=== PATIENT | male | born 1970 | race Caucasian/White ===

== ENCOUNTER 2017-04-19 15:14 | Emergency (ER) | payer MEDICAID ==
[2017-04-19 15:23] VITALS: BP 127/54; PULSE 70; RESP 20; TEMP 98.1; O2SAT 95
--- NOTE | 2017-04-19 15:24 | EDPHY ---
H & P HPI/ROS: CHIEF COMPLAINT: Left lower quadrant soft HISTORY OF PRESENT ILLNESS: Patient is a 47-year-old man with a history of schizophrenia called 911 after he [place] a spicy meal [place] [facility]. He states that it was too spicy and that afterwards he felt like his left lower quadrant was "too soft." He interpreted this as chest pain. He does use cocaine but has not used it for 2 days. He states that when he "gets high it sets off his sexual spirituality". He denies any chest pain today. He denies any shortness of breath. He denies any nausea, vomiting or diaphoresis. He is currently asymptomatic other than being slightly anxious. EMS EKG was normal. REVIEW OF SYSTEMS: Constitutional: denies: chills, fever, recent illness, recent injury EENTM: denies: blurred vision, double vision, nose congestion Respiratory: denies: cough, shortness of breath Cardiac: denies: chest pain, irregular heart rate, lightheadedness, palpitations Gastrointestinal/Abdominal: See HPI denies: abdominal pain, diarrhea, nausea, vomiting, blood streaked stools Genitourinary: denies: dysuria, frequency, hematuria, pain Musculoskeletal: denies: joint pain, muscle pain Skin: denies: lesions, rash, jaundice, bruising Neurological: denies: headache, numbness, paresthesia, tingling, dizziness, weakness Hematologic/Lymphatic: denies: blood clots, easy bleeding, easy bruising Immunologic/allergic: denies: HIV/AIDS, transplant EXAM: GENERAL: Well-appearing, well-nourished and in no acute distress. HEAD: Atraumatic, normocephalic. EYES: Pupils equal round and reactive to light, extraocular movements intact, sclera anicteric, conjunctiva are normal. ENT: TMs normal, nares patent, oropharynx clear without exudates. Moist mucous membranes. NECK: Normal range of motion, supple without lymphadenopathy or JVD. LUNGS: Breath sounds clear to auscultation bilaterally and equal. No wheezes rales or rhonchi. HEART: Regular rate and rhythm without murmurs, rubs or gallops. ABDOMEN: Soft, nontender, normoactive bowel sounds. No guarding, no rebound. No masses appreciated. BACK: No CVA tenderness, no spinal tenderness, step-offs or deformities EXTREMITIES: Normal range of motion, no pitting or edema. No clubbing or cyanosis. NEUROLOGICAL: Cranial nerves II through XII grossly intact. Normal speech, normal gait. 5/5 strength, normal movement in all extremities, normal sensation PSYCH: Normal mood, normal affect. SKIN: Warm, dry, normal turgor, no visible rashes or lesions. Source: Patient, EMS, Old records Exam Limitations: Clinical condition - Medical/Surgical History Hx Asthma: No Hx Chronic Respiratory Disease: No Hx Diabetes: No Hx Cardiac Disease: No Hx Renal Disease: No Hx Cirrhosis: No Hx Alcoholism: No Hx HIV/AIDS: No Hx Splenectomy or Spleen Trauma: No Other PMH: medical- depression, schizophrenia. denies surgical history, "spiritual novacaine growth" - Family History Significant Family History: No pertinent family hx - Social History Smoking Status: Current every day smoker Alcohol Use: Sober Drug Use: None Constitutional: Initial Vital Signs Temperature (C) 36.7 C 04/19/17 15:21 Heart Rate 70 04/19/17 15:21 Respiratory Rate 20 04/19/17 15:21 Blood Pressure 127/54 H 04/19/17 15:21 O2 Sat (%) 95 04/19/17 15:21 O2 Delivery Mode Room Air Allergies/Adverse Reactions: No Known Allergies Allergy (Verified 04/19/17 15:23) Home Medications: Medication Instructions Recorded OLANZAPINE [ZYPREXA 20 mg] 10 mg PO DAILY 02/03/12 Medical Decision Making - Diagnostics EKG Interpretation: An EKG obtained and was read and documented in trace view. Please see trace view for full reading and report. Diffuse minimal ST elevation unchanged from previous four EKGs ED Course/Re-evaluation: The patient is currently asymptomatic. His EKG is unremarkable. His symptoms are not concerning for cardiac disease. He has a benign abdomen. He feels reassured and is eager to go home. He states that he has a bus pass any new to come here rather than a different hospital because he knew he would be discharged immediately. Differential Diagnosis: Partial list of the Differential diagnosis considered include but were not limited to; anxiety, substance abuse, withdrawal and although unlikely based on the history and physical exam, I also considered acute coronary disease, diverticulitis, appendicitis, gastroenteritis. I discussed these differential diagnoses and the plan with the patient as well as the usual and expected course. The patient understands that the diagnosis is provisional and that in medicine we are not always correct and that further workup is often warranted. Usual and customary warnings were given. All of the patient's questions were answered. The patient was instructed to return to the emergency department should the symptoms at all worsen or return, otherwise to followup with the physician as we discussed. Departure - Departure Disposition: Home, Routine, Self-Care Clinical Impression: Anxiety, Cocaine abuse Condition: Fair Instructions: Cocaine Abuse (ED), Anxiety (ED) Referrals: Patient,NotPresent [Unknown] - As per Instructions
--- NOTE | 2017-04-19 15:28 | CPEKG ---
Heart Rate: 70 RR Interval: 857 P-R Interval: 132 QRSD Interval: 86 QT Interval: 396 QTC Interval: 428 P Madison: 68 QRS Madison: 73 T Wave Madison: 69 EKG Severity - ABNORMAL ECG - EKG Impression: SINUS RHYTHM EKG Impression: ST ELEVATION SUGGESTS PERICARDITIS EKG Impression: Unchanged from previous four EKGs Electronically Signed By: Ced Escobar 19-Apr-2017 15:32:42
== END 2017-04-19 15:54 | disposition home or self-care (01) ==
LOC: EDUNIT#
DX: F41.9 Anxiety disorder, unspecified (principal); F14.10 Cocaine abuse, uncomplicated; F17.200 Nicotine dependence, unspecified, uncomplicated

== ENCOUNTER 2018-08-30 20:24 | Emergency (ER) | payer MEDICAID ==
--- NOTE | 2018-08-30 21:40 | EDPHY ---
H & P Time Seen by Provider: 08/30/18 21:32 HPI/ROS: CHIEF COMPLAINT: "I think somebody put something in my candy" HISTORY OF PRESENT ILLNESS: 48-year-old homeless male history of schizophrenia , took the bus to the ER concerned that he may have been given Holly the or marijuana on suspect tingly when [facility]. He states he felt temporarily high and that these feelings of now resolved. He is not interested in testing. Took the bus to [place]. Currently asymptomatic. He denies: Suicidal homicidal ideation, hallucination. PRIMARY CARE PROVIDER: REVIEW OF SYSTEMS: 10 systems reviewed and negative with the exception of the elements mentioned in the history of present illness PAST MEDICAL & SURGICAL HISTORY: Schizophrenia SOCIAL HISTORY:Denies acute alcohol or drug use PHYSICAL EXAM (Prior to examination, patient consented to physical exam, hands were washed and my usual and customary physical exam procedures followed) 1) GENERAL: Well-developed, well-nourished, alert and oriented. Appears to be in no acute distress. Sleeping, easily woken appears well 2) HEAD: Normocephalic, atraumatic 3) HEENT: Pupils equal, round, reactive to light bilaterally. Sclera anicteric. Nasopharynx, oropharynx, clear, no lesions. Moist Mucous membranes. 4) NECK: Full range of motion, no meningeal signs. 5) LUNGS: Clear auscultation bilaterally, no wheezes, no rhonchi, no retractions. 6) HEART: Regular rate and rhythm, no murmur, no heave, no gallop. 7) ABDOMEN: No guarding, no rebound, no focal tenderness, negative McBurney's, negative Magaña's, negative Rovsing's, negative peritoneal sign, 8) MUSCULOSKELETAL: Moving all extremities, no focal areas of tenderness, no obvious trauma. No peripheral edema or discoloration. 9) BACK: No CVA tenderness, no midline vertebral tenderness, no fluctuance, no step-off, no obvious trauma, no visual or palpable abnormality. 10) SKIN: No rash, no petechiae. 11) Psychiatric: Patient is oriented X 3, there is no agitation. 12) NEURO: Awake, alert, and oriented to person, place and time. Answers questions appropriately. There were no obvious focal neurologic abnormalities. No cerebellar dysfunction. Cranial nerves 2 through to 12 intact. Normal steady gait. Upper and lower extremities bilaterally with strength 5 / 5, reflexes 2+. DIFFERENTIAL DIAGNOSIS: In no particular include but limited to intentional drug ingestion, accidental drug ingestion, hallucination Smoking Status: Current every day smoker Constitutional: Initial Vital Signs Temperature (C) 36.9 C 08/30/18 20:25 Heart Rate 116 H 08/30/18 20:25 Respiratory Rate 18 08/30/18 20:25 Blood Pressure 109/89 H 08/30/18 20:25 O2 Sat (%) 96 08/30/18 20:25 O2 Delivery Mode Room Air Allergies/Adverse Reactions: No Known Allergies Allergy (Verified 08/30/18 20:30) Home Medications: Medication Instructions Recorded OLANZAPINE [ZYPREXA 20 mg] 10 mg PO DAILY 02/03/12 MDM/Departure - [facility] ED Course/Re-evaluation: At this time I do not identify emergent condition requiring diagnostic testing or intervention. Plan will be discharge. Care of patient under supervision of secondary supervising physician Dr Harsha Gutierrez . - Depart Disposition: Home, Routine, Self-Care Clinical Impression: Schizophrenia Qualifiers: Schizophrenia type: unspecified Qualified Code(s): F20.9 - Schizophrenia, unspecified Condition: Good Instructions: Schizophrenia (ED) Additional Instructions: Return to the ER if you develop complaints of pain or discomfort or any symptoms that concern you. Referrals: [facility],. [Clinic] - As per Instructions
[2018-08-30 22:13] VITALS: BP 106/79
== END 2018-08-30 22:12 | disposition home or self-care (01) ==
DX: F20.9 Schizophrenia, unspecified (principal)

== ENCOUNTER 2019-03-17 13:57 | Emergency (ER) | payer MEDICAID, OTHER | END 2019-03-17 14:27 | disposition home or self-care (01) ==

== ENCOUNTER 2019-03-17 16:25 | Emergency (ER) | payer MEDICAID | END 2019-03-17 19:39 | disposition home or self-care (01) ==